=== PATIENT | female | born 1970 ===

== ENCOUNTER 2019-04-14 10:14 | Inpatient (IN) | payer OTHER ==
[~2019-04-14] VITALS: Ht 167.6 cm; Wt 85.5 kg
[2019-04-14 11:19] LABS: PCO2 Arterial 43.3 mmHg (35-45); PO2 Arterial 59.4 mmHg (80-100); pH Blood Arterial 7.43 (7.35-7.45)
[2019-04-14 11:26] LABS: BASOPHILS ABSOLUTE AUTO 0.09 K/mm3 (0.00-0.23); BASOPHILS PERCENT AUTO 1 % (0-2); EOSINOPHILS ABSOLUTE AUTO 0.49 K/mm3 (0.00-0.68); EOSINOPHILS PERCENT AUTO 6 % (0-6); Hematocrit 48.2 % (33.0-51.0); Hemoglobin 15.5 g/dL (11.5-16.0); IMMATURE GRAN ABSOLUTE AUTO 0.03 K/mm3 (0.00-0.10); IMMATURE GRAN PERCENT AUTO 0 % (0-1); LYMPHOCYTES ABSOLUTE AUTO 0.98 K/mm3 (0.84-5.20); LYMPHOCYTES PERCENT AUTO 11 % (21-46); MONOCYTES ABSOLUTE AUTO 0.62 K/mm3 (0.16-1.47); MONOCYTES PERCENT AUTO 7 % (4-13); Mean Corpuscular HGB 27.3 pg (26.0-34.0); Mean Corpuscular HGB Conc 32.2 g/dL (31.5-36.5); Mean Corpuscular Volume 85 fL (80-100); Mean Platelet Volume 11.1 fL (9.1-12.4); NEUTROPHILS ABSOLUTE AUTO 6.49 K/mm3 (1.96-9.15); NEUTROPHILS PERCENT AUTO 75 % (41-73); Platelet Count 261 K/mm3 (150-400); RDW Coefficient Variation 13.3 % (11.7-14.2); RDW Standard Deviation 41.1 fL (35.1-46.3); Red Blood Cell Count 5.68 M/mm3 (3.80-5.20)
[2019-04-14 11:39] LABS: Alanine Aminotransfer (ALT/SGP 59 U/L (12-78); Albumin, Blood 3.9 g/dL (3.4-5.0); Albumin/Globulin Ratio 0.9 (0.8-1.8); Alk Phos 121 U/L (50-136); Anion Gap 7 mmol/L (6-16); Aspartate Aminotrans (AST/SGOT 34 U/L (12-37); Bilirubin, Total 0.9 mg/dL (0.1-1.0); Blood Urea Nitrogen 8 mg/dL (8-24); Bun/Creatinine Ratio 13.3 (12.0-20.0); CO2, Blood 28 mmol/L (21-32); Calcium, Blood 9.3 mg/dL (8.5-10.1); Chloride, Blood 104 mmol/L (98-108); Globulin, Blood 4.4 g/dL (2.2-4.0); Glomerular Filtration Rate >60 (60-); Glucose, Blood 148 mg/dL (70-99); Potassium, Blood 3.4 mmol/L (3.5-5.5); Sodium, Blood 139 mmol/L (136-145); Total Protein, Blood 8.3 g/dL (6.4-8.2); Troponin I <0.015 ng/mL (0.000-0.040)
--- NOTE | 2019-04-14 15:34 | NUR ---
HANDOFF RECEIVED HANDOFF REPORT RECEIVED FROM ER NURSE KUN. PT AND POSSESSIONS BROUGHT TO FLOOR BY ER STAFF. PT ORIENTED TO UNIT. VITAL SIGNS TAKEN. CALL BUTTON WITHIN REACH.
--- NOTE | 2019-04-14 16:42 | NUR ---
SHIFT SUMMARY PT ADMITTED TODAY FROM ER FOR ASTHMA EXACERBATION. PLAN IS TO KEEP HER UNTIL S/SX IMPROVE, WEAN O2. SHE IS ON RA @ HOME. SHE STATED SHE FELT SOB FOR ONE WEEK, SIGNIFICANTLY WORSENING TODAY. REGULAR DIET, 4 LPM O2 AT THIS TIME. FULL CODE. INDEPENDENT IN ROOM, RECEIVING RT TREATMENTS.
[2019-04-14 19:29] LABS: Adenovirus Not Detected (NOT DETECT); Bordetella pertussis Not Detected (NOT DETECT); Chlamydophila pneumoniae Not Detected (NOT DETECT); Coronavirus 229E Not Detected (NOT DETECT); Coronavirus HKU1 Not Detected (NOT DETECT); Coronavirus NL63 Not Detected (NOT DETECT); Coronavirus OC43 Not Detected (NOT DETECT); Human Metapneumovirus Not Detected (NOT DETECT); Human Rhinovirus/Enterovirus Not Detected (NOT DETECT); Influenza A Not Detected (NOT DETECT); Influenza A/2009-H1 Not Detected (NOT DETECT); Influenza A/H1 Not Detected (NOT DETECT); Influenza A/H3 Not Detected (NOT DETECT); Influenza B Not Detected (NOT DETECT); Mycoplasma pneumoniae Not Detected (NOT DETECT); Parainfluenza Virus 1 Not Detected (NOT DETECT); Parainfluenza Virus 2 Not Detected (NOT DETECT); Parainfluenza Virus 3 Not Detected (NOT DETECT); Parainfluenza Virus 4 Not Detected (NOT DETECT); Respiratory Syncytial Virus Not Detected (NOT DETECT)
--- NOTE | 2019-04-15 05:07 | NUR ---
PT A/O, COOPERATIVE WITH CARE THIS SHIFT. PT HAS A HARSH COUGH THIS SHIFT. PT PROVIDED PRN GUAFENSEN/CODINE 1X THIS SHIFT, DENIED FURTHER NEED WHEN OFFERED LATER IN SHIFT. COUGH IMPROVED WITH GUAFENSEN/CODINE THEN LATER WITH SOLUMEDROL. PT INDEPENDENT IN ROOM. PT ON 3L O2. PT SLEPT THROUGH MUCH OF THE NIGHT. PT DENIES FURTHER NEEDS AT THIS TIME.
[2019-04-15 12:03] LABS: Anion Gap 8 mmol/L (6-16); Blood Urea Nitrogen 14 mg/dL (8-24); Bun/Creatinine Ratio 19.7 (12.0-20.0); CO2, Blood 27 mmol/L (21-32); Calcium, Blood 9.6 mg/dL (8.5-10.1); Chloride, Blood 103 mmol/L (98-108); Creatinine, Blood 0.71 mg/dL (0.40-1.00); Glomerular Filtration Rate >60 (60-); Glucose, Blood 170 mg/dL (70-99); Potassium, Blood 3.9 mmol/L (3.5-5.5); Sodium, Blood 138 mmol/L (136-145)
--- NOTE | 2019-04-15 15:48 | NUR ---
SHIFT SUMMARY FLUID BOLLUS GIVEN. CALLED DOCTOR TO CONFIRM ADMINISTRATION. 3 LPM O2 VIA NC. PT STILL HAS BOUTS OF BARKING COUGH. RESP PANEL NEG. GUAIFENESIN/CODEINE SYRUP AVAILABLE Q 6 PRN. PT RECEIVES RT TX. IV SOLUMEDROL GIVEN ORDERED.
--- NOTE | 2019-04-16 05:36 | NUR ---
Rn summary: Patient is alert and oriented. Pt continues to have inspiratory and expiratory wheezes. Pt is a little "sing-songy" in her respirations. Pt has a harsh nonproductive cough which has decreased from last night Pt is on 2 liters NC. Pt up independantly to the BR. Pt has rested this shift. Denies pain. Taking fluids well. Call light in reach.
[2019-04-16] MEDS ORDERED: ALBU90OI INH (11:56)
[2019-04-16] MEDS ORDERED: ELIQUIS5 MG PO (11:57)
[2019-04-16] MEDS ORDERED: Lipitor20 MG PO (12:02)
[2019-04-16] MEDS ORDERED: Buspirone HCl15 MG PO (12:03)
[2019-04-16] MEDS ORDERED: ALLEGRA ALLERG180 MG PO (12:07)
[2019-04-16] MEDS ORDERED: B-122500 MCG SL (12:07)
[2019-04-16] MEDS ORDERED: METPRE4 PO (12:08)
[2019-04-16] MEDS ORDERED: BUDE.25 NEB (12:09)
--- NOTE | 2019-04-16 12:18 | NUR ---
Upon receiving an admit referral, I visited patient. I appparently walked in right after her lunch food was delivered and so patient asked if I could come back after she ate. Patient then tells me she will be discharged very soon. I then ask patient if I could pray for her. She says, "Please do." I gladly provide prayer. Pateitnthaks me for the prayer and states that she really needed the prayer. I then allow patient to eat her food.
--- NOTE | 2019-04-16 12:35 | NUR ---
PT DISCHARGED LEFT UNIT ASSISTED BY FACTORY LABORER. DISCHARGE INSTRUCTIONS REVIEWED. FOLLOW UP APPOINTMENT SCHEDULED. MEDICATIONS FAXED TO [facility]
== END 2019-04-16 12:35 | disposition home or self-care (01) | DRG 203 ==
LOC: ER 10:14 → MEDS 12:24 → ENPENDDIS 04-16 11:19 → MEDS 04-16 12:35
PROVIDERS: Emergency Medicine; ADMIT Family Medicine
DX: J45.901 Unspecified asthma with (acute) exacerbation (principal); R73.9 Hyperglycemia, unspecified; Z86.59 Personal history of other mental and behavioral disorders
CPT/HCPCS: 0099U; 36415; 36600; 71046; 80048; 80053; 82803; 83036; 84443; 84484; 85025; 93005; 93010; 94640; 94760; 96361; 96374; 96375; 99285-25; J1650; J2060; J2930; J7030; J7120

== ENCOUNTER 2019-07-01 14:19 | Emergency (ER) | payer OTHER ==
[~2019-07-01] VITALS: Ht 160 cm; Wt 82.5 kg
[~2019-07-01 14:19] MED LIST: ALBU90OI INH; ALLEGRA ALLERG180 MG PO; B-122500 MCG SL; BUDE.25 NEB; Buspirone HCl15 MG PO; ELIQUIS5 MG PO; Lipitor20 MG PO; METPRE4 PO
[2019-07-01] MEDS ORDERED: Albuterol2.5 MG/0.5 INH (18:33)
[2019-07-01] MEDS ORDERED: Mucinex600 MG PO (18:33)
== END 2019-07-01 19:01 | disposition home or self-care (01) ==
LOC: ER 14:19
DX: J98.01 Acute bronchospasm (principal); I10 Essential (primary) hypertension; E78.5 Hyperlipidemia, unspecified; Z79.899 Other long term (current) drug therapy
CPT/HCPCS: 71046; 93005; 93010; 94644; 99283-25; J1100

== ENCOUNTER → 2019-07-16 | Outpatient (CLI) | payer OTHER ==
[~2019-07-16] MED LIST changes: +Albuterol2.5 MG/0.5 INH; +Mucinex600 MG PO
[2019-07-20 15:09] LABS: HPV 16 Negative (Negative); HPV 18 Negative (Negative); HPV OTHER HR TYPES Positive (Negative)
== END | disposition home or self-care (01) ==
LOC: LAB 10:57 → LAB SHORT 10:57
PROVIDERS: Family Medicine
DX: Z12.4 Encounter for screening for malignant neoplasm of cervix (principal)
CPT/HCPCS: 87624; G0123

== ENCOUNTER 2019-08-04 11:30 | Emergency (ER) | payer OTHER ==
[~2019-08-04] VITALS: Ht 162.6 cm; Wt 82.5 kg
[2019-08-04] MEDS ORDERED: METPRE4DP PO (13:07)
== END 2019-08-04 13:14 | disposition home or self-care (01) ==
LOC: ER 11:30
DX: J45.909 Unspecified asthma, uncomplicated (principal); J20.8 Acute bronchitis due to other specified organisms; I10 Essential (primary) hypertension; Z79.899 Other long term (current) drug therapy
CPT/HCPCS: 71045; 94640; 99283-25; J7509

== ENCOUNTER 2019-08-07 00:59 | Observation (INO) | payer OTHER ==
[~2019-08-07] VITALS: Ht 162.6 cm; Wt 81.4 kg
[~2019-08-07 00:59] MED LIST changes: +METPRE4DP PO
[2019-08-07 01:54] LABS: BASOPHILS ABSOLUTE AUTO 0.08 K/mm3 (0.00-0.23); BASOPHILS PERCENT AUTO 1 % (0-2); EOSINOPHILS PERCENT AUTO 4 % (0-6); Hematocrit 46.8 % (33.0-51.0); Hemoglobin 15.2 g/dL (11.5-16.0); IMMATURE GRAN ABSOLUTE AUTO 0.03 K/mm3 (0.00-0.10); IMMATURE GRAN PERCENT AUTO 0 % (0-1); LYMPHOCYTES ABSOLUTE AUTO 1.18 K/mm3 (0.84-5.20); LYMPHOCYTES PERCENT AUTO 11 % (21-46); MONOCYTES ABSOLUTE AUTO 0.92 K/mm3 (0.16-1.47); MONOCYTES PERCENT AUTO 9 % (4-13); Mean Corpuscular HGB 27.6 pg (26.0-34.0); Mean Corpuscular HGB Conc 32.5 g/dL (31.5-36.5); Mean Corpuscular Volume 85 fL (80-100); Mean Platelet Volume 11.2 fL (9.1-12.4); NEUTROPHILS ABSOLUTE AUTO 8.14 K/mm3 (1.96-9.15); NEUTROPHILS PERCENT AUTO 76 % (41-73); Platelet Count 280 K/mm3 (150-400); RDW Coefficient Variation 12.8 % (11.7-14.2); RDW Standard Deviation 39.8 fL (35.1-46.3); White Blood Cell Count 10.75 K/mm3 (4.00-11.30)
[2019-08-07 02:09] LABS: Alanine Aminotransfer (ALT/SGP 39 U/L (12-78); Albumin, Blood 3.8 g/dL (3.4-5.0); Alk Phos 133 U/L (50-136); Anion Gap 8 mmol/L (6-16); Aspartate Aminotrans (AST/SGOT 19 U/L (12-37); Bilirubin, Total 0.6 mg/dL (0.1-1.0); Blood Urea Nitrogen 10 mg/dL (8-24); Bun/Creatinine Ratio 17.2 (12.0-20.0); CO2, Blood 28 mmol/L (21-32); Calcium, Blood 8.9 mg/dL (8.5-10.1); Chloride, Blood 105 mmol/L (98-108); Creatinine, Blood 0.58 mg/dL (0.40-1.00); Glomerular Filtration Rate >60 (60-); Glucose, Blood 140 mg/dL (70-99); Potassium, Blood 3.5 mmol/L (3.5-5.5); Sodium, Blood 141 mmol/L (136-145); Total Protein, Blood 7.8 g/dL (6.4-8.2); Troponin I <0.015 ng/mL (0.000-0.040)
--- NOTE | 2019-08-07 04:00 | NUR ---
transfer reort from [facility] on PT female with SOB cough who was dc in Apr 2019 with same. Noncompliance with rx she recieved due to beliefs they worsen condition and hx of Psych disorder. In to ER via EMS REPORTED. Oxygen and RT eval and tx. Hx of Family Asthma and PT failure to follow through with referrals and tx to do pulmonary function tests. Will wear facemask due to cough main complaint, reported chills without fever. CXR done in ER. Await admission to obs status.
[2019-08-07 06:31] LABS: Adenovirus Not Detected (NOT DETECT); Bordetella pertussis Not Detected (NOT DETECT); Chlamydophila pneumoniae Not Detected (NOT DETECT); Coronavirus 229E Not Detected (NOT DETECT); Coronavirus HKU1 Not Detected (NOT DETECT); Coronavirus NL63 Not Detected (NOT DETECT); Coronavirus OC43 Not Detected (NOT DETECT); Human Metapneumovirus Not Detected (NOT DETECT); Human Rhinovirus/Enterovirus Not Detected (NOT DETECT); Influenza A/2009-H1 Not Detected (NOT DETECT); Influenza A/H1 Not Detected (NOT DETECT); Influenza A/H3 Not Detected (NOT DETECT); Influenza B Not Detected (NOT DETECT); Mycoplasma pneumoniae Not Detected (NOT DETECT); Parainfluenza Virus 1 Not Detected (NOT DETECT); Parainfluenza Virus 2 Not Detected (NOT DETECT); Parainfluenza Virus 3 Not Detected (NOT DETECT); Parainfluenza Virus 4 Not Detected (NOT DETECT); Respiratory Syncytial Virus Not Detected (NOT DETECT)
[2019-08-07] MEDS ORDERED: HYDHOMSY PO (08:00)
--- NOTE | 2019-08-07 08:34 | NUR ---
female in [facility] since last september 2018 says Moth has hx of TB but PT very poor historian and unable to say when Mother had TB & if she completed therapy. PT here from [facility]. Needs oxygen and steroids. Hospitalized 04/2019. HX noncompliance due to not understanding RAD. Support offered. PT with positive HPV screen via [facility] 07/16/2019. [place] there, PT says risk of cervical cancer. Says unable to followup due to cough and URI s/sx. Recent diarrhea 3 days ago for 3 days. none recent. Steroids explained,
--- NOTE | 2019-08-07 17:17 | NUR ---
SUMMARY PT RESTING QUIETLY IN BED, WAKES EASILY, HAS BEEN INDEPENDENT IN THE ROOM, PT IS PLEASANT AND COOPERATIVE WITH CARE, HAS MANY QUESTIONS REGARDING HER RESPIRATORY STATUS, EDUCATED PT, PT ON 2L NC OFF AND ON T/O THE DAY, VSS, NO ACUTE CHANGES, WILL CONT TO MONITOR
--- NOTE | 2019-08-08 05:42 | NUR ---
SHIFT SUMMARY ADMITTED FOR ASTHMA EXACERBATION. FULL CODE. PT MAY HOPE TO DISCHARGE SOON. SHE STATES SHE FEELS MUCH IMPROVED. SHE HAS A PRODUCTIVE COUGH. SHE IS A&O X4, INDEPENDENT IN ROOM, 2 LPM O2, REGULAR DIET. IV SOLUMEDROL AND BREATHING TX'S MAY HAVE MADE HER TACHYCARDIC. HX: SCHIZOPHRENIA, BIPOLAR, ASTHMA, HTN, HYPERLIPIDEMIA.
--- NOTE | 2019-08-08 18:01 | NUR ---
NO NOTEABL CHANGES THIS SHIFT. PROBABLE DISCHARGE TOMORROW.
--- NOTE | 2019-08-09 06:46 | NUR ---
SHIFT SUMMARY PT PLEASANT AND COOPERATIVE WITH CARE. RESP E/U AT REST. VSS. SLEPT MUCH OF NIGHT. NO ACUTE CHANGES NOTED THIS SHIFT. PRESENTLY AWAKE LYING IN BED AND APPEARS IN NO ACUTE DISTRESS. WILL CONTINUE TO MONITOR.
[2019-08-09] MEDS ORDERED: BENZ100A PO (12:56)
[2019-08-09] MEDS ORDERED: Duoneb 2.5-0.5 M3 ML INH (12:57)
[2019-08-09] MEDS ORDERED: MONT10T PO (12:58)
[2019-08-09] MEDS ORDERED: TIOT18 INH (13:00)
--- NOTE | 2019-08-09 14:08 | NUR ---
DISCHARGED DC'D IV, CATHETER INTACT. REVIEWED DC PAPERWORK W/PT; VERBALIZED UNDERSTANDING. PT LEFT UNIT IN WC W/PAPERWORK AND DC PAPERWORK IN HAND.
== END 2019-08-09 14:10 | disposition home or self-care (01) ==
LOC: ER 00:59 → MEDS 01:00
PROVIDERS: Emergency Medicine; ADMIT Family Medicine
DX: J45.901 Unspecified asthma with (acute) exacerbation (principal); J96.01 Acute respiratory failure with hypoxia; E78.5 Hyperlipidemia, unspecified; I10 Essential (primary) hypertension; Z79.01 Long term (current) use of anticoagulants
CPT/HCPCS: 0099U; 71045; 80053; 84484; 85025; 90686; 93005; 93010; 94640; 94760; 96365; 96372; 96375; 96376; 99285-25; G0008; G0378; J1650; J2920; J2930; J3475

== ENCOUNTER → 2019-08-15 | Outpatient (CLI) | payer OTHER ==
[~2019-08-15] MED LIST changes: +BENZ100A PO; +Duoneb 2.5-0.5 M3 ML INH; +HYDHOMSY PO; +MONT10T PO; +TIOT18 INH
== END | disposition home or self-care (01) ==
LOC: LAB SHORT 08:45 → PLD 08:45
DX: N87.1 Moderate cervical dysplasia (principal)
CPT/HCPCS: 88305

== ENCOUNTER → 2019-08-23 | Outpatient (CLI) | payer OTHER | END | disposition home or self-care (01) | LOC: LAB SHORT 12:25 → PLD 12:25 | DX: N87.1 Moderate cervical dysplasia (principal) | CPT/HCPCS: 88307 ==

== ENCOUNTER 2020-02-23 21:33 | Emergency (ER) | payer OTHER ==
[~2020-02-23] VITALS: Ht 167.6 cm; Wt 79.8 kg
[~2020-02-23 21:33] MED LIST changes: +Amoxicillin500 MG PO; +FLUT1DIS5 INH; +FLUTICASONE-SA1 EA11; +FLUTICASONE-SA1 EAC1 INH; +IPRAT-ALBUT 0.5-3 ML INH; +METF500 PO; +PRED20 PO
[2020-02-25] MEDS ORDERED: OLAN10 PO (08:30)
== END 2020-02-24 00:37 | disposition home or self-care (01) ==
LOC: ER 21:33
DX: R22.32 Localized swelling, mass and lump, left upper limb (principal); R22.1 Localized swelling, mass and lump, neck; R25.1 Tremor, unspecified; T36.0X5A Adverse effect of penicillins, initial encounter; I10 Essential (primary) hypertension; J45.909 Unspecified asthma, uncomplicated; Z79.84 Long term (current) use of oral hypoglycemic drugs; Z79.899 Other long term (current) drug therapy; Z87.891 Personal history of nicotine dependence
CPT/HCPCS: 99282

== ENCOUNTER 2020-02-24 16:54 | Observation (INO) | payer OTHER ==
[~2020-02-24] VITALS: Ht 167.6 cm; Wt 79.8 kg
[~2020-02-24 16:54] MED LIST changes: -OLAN10 PO
[2020-02-24 18:07] LABS: BASOPHILS ABSOLUTE AUTO 0.03 K/mm3 (0.00-0.23); BASOPHILS PERCENT AUTO 0 % (0-2); EOSINOPHILS ABSOLUTE AUTO 0.16 K/mm3 (0.00-0.68); EOSINOPHILS PERCENT AUTO 2 % (0-6); Hematocrit 41.1 % (33.0-51.0); Hemoglobin 13.1 g/dL (11.5-16.0); IMMATURE GRAN ABSOLUTE AUTO 0.03 K/mm3 (0.00-0.10); IMMATURE GRAN PERCENT AUTO 0 % (0-1); LYMPHOCYTES ABSOLUTE AUTO 1.08 K/mm3 (0.84-5.20); LYMPHOCYTES PERCENT AUTO 11 % (21-46); MONOCYTES ABSOLUTE AUTO 0.77 K/mm3 (0.16-1.47); MONOCYTES PERCENT AUTO 8 % (4-13); Mean Corpuscular HGB 26.5 pg (26.0-34.0); Mean Corpuscular HGB Conc 31.9 g/dL (31.5-36.5); Mean Corpuscular Volume 83 fL (80-100); Mean Platelet Volume 10.6 fL (9.1-12.4); NEUTROPHILS ABSOLUTE AUTO 7.46 K/mm3 (1.96-9.15); NEUTROPHILS PERCENT AUTO 78 % (41-73); Platelet Count 247 K/mm3 (150-400); RDW Standard Deviation 42.7 fL (35.1-46.3); Red Blood Cell Count 4.94 M/mm3 (3.80-5.20); White Blood Cell Count 9.53 K/mm3 (4.00-11.30)
[2020-02-24 18:36] LABS: Alanine Aminotransfer (ALT/SGP 64 U/L (12-78); Albumin, Blood 3.2 g/dL (3.4-5.0); Albumin/Globulin Ratio 0.9 (0.8-1.8); Alk Phos 117 U/L (50-136); Anion Gap 9 mmol/L (6-16); Aspartate Aminotrans (AST/SGOT 26 U/L (12-37); Blood Urea Nitrogen 7 mg/dL (8-24); Bun/Creatinine Ratio 13.6 (12.0-20.0); CO2, Blood 22 mmol/L (21-32); Calcium, Blood 8.8 mg/dL (8.5-10.1); Chloride, Blood 113 mmol/L (98-108); Creatinine, Blood 0.51 mg/dL (0.40-1.00); Ethanol (Alcohol), Blood, Med <3 mg/dL; Globulin, Blood 3.4 g/dL (2.2-4.0); Glomerular Filtration Rate >60 (60-); Glucose, Blood 178 mg/dL (70-99); Potassium, Blood 3.5 mmol/L (3.5-5.5); Salicylate <1.7 mg/dL (2.8-20.0); Sodium, Blood 144 mmol/L (136-145); Total Protein, Blood 6.6 g/dL (6.4-8.2)
[2020-02-24 19:11] LABS: Acetaminophen, Random <2.0 ug/mL (10.0-30.0)
[2020-02-25] MEDS ORDERED: OLAN10 PO (08:30)
== END 2020-02-25 09:24 | disposition home or self-care (01) ==
LOC: ER 16:54 → EOR 16:55
PROVIDERS: ADMIT Emergency Medicine
DX: R45.851 Suicidal ideations (principal); F41.9 Anxiety disorder, unspecified; I10 Essential (primary) hypertension; Z87.891 Personal history of nicotine dependence; J45.909 Unspecified asthma, uncomplicated; Z79.899 Other long term (current) drug therapy
CPT/HCPCS: 36415; 80053; 85025; 99285; A9270; G0378; G0480; Q3014

== ENCOUNTER → 2020-02-24 | Outpatient (CLI) | payer OTHER ==
[~2020-02-24] MED LIST changes: +OLAN10 PO
[2020-02-24 12:23] LABS: BASOPHILS ABSOLUTE AUTO 0.04 K/mm3 (0.00-0.23); BASOPHILS PERCENT AUTO 0 % (0-2); EOSINOPHILS ABSOLUTE AUTO 0.21 K/mm3 (0.00-0.68); EOSINOPHILS PERCENT AUTO 2 % (0-6); Hematocrit 41.6 % (33.0-51.0); IMMATURE GRAN ABSOLUTE AUTO 0.05 K/mm3 (0.00-0.10); IMMATURE GRAN PERCENT AUTO 1 % (0-1); LYMPHOCYTES ABSOLUTE AUTO 1.06 K/mm3 (0.84-5.20); LYMPHOCYTES PERCENT AUTO 11 % (21-46); MONOCYTES ABSOLUTE AUTO 0.78 K/mm3 (0.16-1.47); MONOCYTES PERCENT AUTO 8 % (4-13); Mean Corpuscular HGB 27.3 pg (26.0-34.0); Mean Corpuscular HGB Conc 33.7 g/dL (31.5-36.5); Mean Corpuscular Volume 81 fL (80-100); Mean Platelet Volume 10.9 fL (9.1-12.4); NEUTROPHILS ABSOLUTE AUTO 7.97 K/mm3 (1.96-9.15); NEUTROPHILS PERCENT AUTO 79 % (41-73); Platelet Count 257 K/mm3 (150-400); RDW Coefficient Variation 14.3 % (11.7-14.2); RDW Standard Deviation 41.7 fL (35.1-46.3); Red Blood Cell Count 5.12 M/mm3 (3.80-5.20); White Blood Cell Count 10.11 K/mm3 (4.00-11.30)
[2020-02-24 12:31] LABS: Alanine Aminotransfer (ALT/SGP 73 U/L (12-78); Albumin, Blood 3.4 g/dL (3.4-5.0); Albumin/Globulin Ratio 0.8 (0.8-1.8); Alk Phos 130 U/L (40-126); Anion Gap 10 mmol/L (6-16); Aspartate Aminotrans (AST/SGOT 26 U/L (12-37); Bilirubin, Total 1.1 mg/dL (0.1-1.0); Blood Urea Nitrogen 9 mg/dL (8-24); Bun/Creatinine Ratio 13.4 (12.0-20.0); CO2, Blood 24 mmol/L (21-32); Calcium, Blood 9.1 mg/dL (8.5-10.1); Chloride, Blood 103 mmol/L (98-108); Creatinine, Blood 0.67 mg/dL (0.40-1.00); Globulin, Blood 4.1 g/dL (2.2-4.0); Glomerular Filtration Rate >60 (60-); Glucose, Blood 185 mg/dL (70-99); Potassium, Blood 3.4 mmol/L (3.5-5.5); Sodium, Blood 137 mmol/L (136-145); Total Protein, Blood 7.5 g/dL (6.4-8.2)
== END | disposition home or self-care (01) ==
LOC: LAB EV 12:14 → LAB SHORT 12:14
PROVIDERS: Physician Assistant Medical
DX: R73.9 Hyperglycemia, unspecified (principal); R42 Dizziness and giddiness
CPT/HCPCS: 80053; 83036; 85025

== ENCOUNTER 2020-03-18 18:01 | Emergency (ER) | payer OTHER ==
[~2020-03-18] VITALS: Ht 167.6 cm; Wt 79.8 kg
[~2020-03-18 18:01] MED LIST changes: +OLAN10 PO
== END 2020-03-18 19:52 | disposition home or self-care (01) ==
LOC: ER 18:01
DX: R09.89 Other specified symptoms and signs involving the circulatory and respiratory systems (principal); I10 Essential (primary) hypertension; Z79.84 Long term (current) use of oral hypoglycemic drugs; Z79.899 Other long term (current) drug therapy; Z87.891 Personal history of nicotine dependence
CPT/HCPCS: 71045; 99283-25

== ENCOUNTER 2020-06-14 23:10 | Emergency (ER) | payer OTHER ==
[~2020-06-14] VITALS: Ht 167.6 cm; Wt 75.8 kg
[2020-06-15 01:05] LABS: BASOPHILS ABSOLUTE AUTO 0.07 K/mm3 (0.00-0.23); BASOPHILS PERCENT AUTO 1 % (0-2); EOSINOPHILS ABSOLUTE AUTO 0.19 K/mm3 (0.00-0.68); EOSINOPHILS PERCENT AUTO 3 % (0-6); Hematocrit 44.3 % (33.0-51.0); Hemoglobin 14.5 g/dL (11.5-16.0); IMMATURE GRAN ABSOLUTE AUTO 0.02 K/mm3 (0.00-0.10); IMMATURE GRAN PERCENT AUTO 0 % (0-1); LYMPHOCYTES PERCENT AUTO 20 % (21-46); MONOCYTES ABSOLUTE AUTO 0.69 K/mm3 (0.16-1.47); MONOCYTES PERCENT AUTO 9 % (4-13); Mean Corpuscular HGB 27.1 pg (26.0-34.0); Mean Corpuscular HGB Conc 32.7 g/dL (31.5-36.5); Mean Corpuscular Volume 83 fL (80-100); Mean Platelet Volume 11.9 fL (9.1-12.4); NEUTROPHILS ABSOLUTE AUTO 4.89 K/mm3 (1.96-9.15); NEUTROPHILS PERCENT AUTO 66 % (41-73); Platelet Count 265 K/mm3 (150-400); RDW Coefficient Variation 13.2 % (11.7-14.2); Red Blood Cell Count 5.35 M/mm3 (3.80-5.20); White Blood Cell Count 7.36 K/mm3 (4.00-11.30)
[2020-06-15 01:23] LABS: Alanine Aminotransfer (ALT/SGP 55 U/L (12-78); Albumin, Blood 3.7 g/dL (3.4-5.0); Alk Phos 135 U/L (50-136); Anion Gap 10 mmol/L (6-16); Aspartate Aminotrans (AST/SGOT 23 U/L (12-37); Bilirubin, Total 0.8 mg/dL (0.1-1.0); Blood Urea Nitrogen 5 mg/dL (8-24); Bun/Creatinine Ratio 10.4 (12.0-20.0); CO2, Blood 24 mmol/L (21-32); Calcium, Blood 9.2 mg/dL (8.5-10.1); Chloride, Blood 106 mmol/L (98-108); Creatinine, Blood 0.48 mg/dL (0.40-1.00); Globulin, Blood 3.7 g/dL (2.2-4.0); Glomerular Filtration Rate >60 (60-); Glucose, Blood 271 mg/dL (70-99); Potassium, Blood 2.9 mmol/L (3.5-5.5); Sodium, Blood 140 mmol/L (136-145); Total Protein, Blood 7.4 g/dL (6.4-8.2)
[2020-06-15] MEDS ORDERED: MECL25 PO (02:33)
== END 2020-06-15 02:47 | disposition home or self-care (01) ==
LOC: ER 23:10
PROVIDERS: Emergency Medicine
DX: R42 Dizziness and giddiness (principal); R22.0 Localized swelling, mass and lump, head; I10 Essential (primary) hypertension; Z79.84 Long term (current) use of oral hypoglycemic drugs; Z79.899 Other long term (current) drug therapy
CPT/HCPCS: 36415; 70450; 80053; 85025; 93005; 93010; 96374; 99284-25; A9270; J1885; J7030